=== PATIENT | female | born 1950 | race Two or more races ===

== ENCOUNTER 2020-08-30 08:12 | Outpatient (CLI) | payer OTHER | END 2020-08-30 08:17 | disposition home or self-care (01) | LOC: TOM 08:12 | PROVIDERS: ATTEND Internal Medicine Gastroenterology | DX: K57.90 Diverticulosis of intestine, part unspecified, without perforation or abscess without bleeding (principal); K56.600 Partial intestinal obstruction, unspecified as to cause; K56.50 Intestinal adhesions [bands], unspecified as to partial versus complete obstruction ==

== ENCOUNTER 2024-06-14 07:09 | Outpatient (CLI) | payer OTHER | END 2024-06-14 07:16 | disposition home or self-care (01) | LOC: TOM 07:09 | PROVIDERS: ATTEND Internal Medicine | DX: K57.30 Diverticulosis of large intestine without perforation or abscess without bleeding (principal) ==